=== PATIENT | female | born 1995 | race Caucasian/White ===

== ENCOUNTER → 2020-05-09 | Outpatient (CLI) | payer BC ==
[2013-11-28 13:58] VITALS: BP 129/73
[~2020-05-09] MED LIST: IBUP200C PO; MINO50TA2 PO
--- NOTE | 2020-05-09 15:26 | KCIC ---
Examination: MRI of the right knee without contrast HISTORY: History of right knee pain, patellar instability COMPARISON: None available TECHNIQUE: Multiplanar multisequence MR imaging of the right knee without contrast FINDINGS: The anterior cruciate ligament, posterior cruciate ligament appears intact. The medial, lateral meniscus appears intact. The medial collateral ligament is intact. Lateral collateral ligamentous complex including the fibular collateral ligament, biceps femoris tendon, popliteus tendon appear intact. The extensor mechanism appears intact. Small knee joint effusion. The medial, lateral retinaculum appear intact. Trace popliteal cyst. Mild lateral patellar tracking. IMPRESSION: 1. Mild lateral patellar tracking. 2. Minimal knee joint effusion with trace popliteal cyst. Electronically signed by: Amadeo Cazares MD (05/09/2020 3:23 PM) [id number]
== END | disposition home or self-care (01) ==
LOC: KCIC MRI 14:43
PROVIDERS: ATTEND Physician Assistant
DX: S83.241A Other tear of medial meniscus, current injury, right knee, initial encounter (principal); M25.361 Other instability, right knee; M25.461 Effusion, right knee; X58.XXXA Exposure to other specified factors, initial encounter; Y93.89 Activity, other specified; Y92.89 Other specified places as the place of occurrence of the external cause; Y99.8 Other external cause status
CPT/HCPCS: 73721